=== PATIENT | male | born 1995 | race Caucasian/White ===

== ENCOUNTER 2020-07-21 21:02 | Emergency (ER) | payer OTHER, SELFPAY ==
[2020-07-21 21:52] VITALS: BP 110/70; PULSE 56; RESP 14; TEMP 36.8; O2SAT 96; BMI 20.9
--- NOTE | 2020-07-21 22:09 | W.ED.HEATRA ---
HPI - Head Injury General: Chief complaint: Head Injury Stated complaint: HEAD INJURY Time Seen by Provider: 07/21/20 22:01 History of Present Illness: HPI Narrative: A socket flew off universal socket rinse this evening and in the socket struck him between the eyes. No loss of consciousness. Patient has laceration. Tetanus up-to-date. Complaint: other (Laceration) Onset (ago): minute(s) Mechanism of Injury: other Place: home Loss of Consciousness: no Location of injury: frontal Severity: mild Severity scale (1-10): 1 Associated symptoms: Reports no associated symptoms Review of Systems Const: Denies: fever(s) or chills Skin/Breast: Reports: other (Laceration between the eyes above the bridge of the nose between the eyebro) Psych: Denies: anxiety Physical Exam Const: COMMON NORMALS: no acute distress and patient oriented x3 Neuro: COMMON NORMALS: patient oriented x3, moves all extremities and no focal motor deficits Skin: OTHER: Slightly irregular laceration curved between the eyebrows center no active bleeding Procedures Laceration Laceration 1: Site: face Size (cm): 3 Description: irregular Depth: simple, single layer Skin layer closed with: other (Skin adhesive) Course Vital Signs: Vital signs: Vital Signs Temperature 98.2 F 07/21/20 21:52 Pulse Rate 56 L 07/21/20 21:52 Respiratory Rate 14 07/21/20 21:52 Blood Pressure 110/70 07/21/20 21:52 Pulse Oximetry 96 07/21/20 21:52 Discharge Plan Discharge Patient Disposition: Home Clinical Impression: Laceration Condition: Stable Discharge Orders: Discharge ED (Routine); Ordered 07/21/20 Ordered By: Rodrigo Bautista Referrals: Marina Whaley DO [Primary Care Provider] - Discharge Diet: Usual diet Discharge Activity: Resume usual activity Patient Instructions: Skin Adhesive Care (ED) Activity Restrictions/Additional Instructions: Watch for signs symptoms of infection. Follow-up skin adhesive care instructions. Follow-up your family medical provider if he having difficulties with this laceration. Coding Level of Care Code ED Supervisor Cell Operation for Sharifa Young
== END 2020-07-21 22:22 | disposition home or self-care (01) ==
PROVIDERS: Emergency Provider Nurse Practitioner Family; PCP Family Medicine
DX: S01.81XA Laceration without foreign body of other part of head, initial encounter (principal); W20.8XXA Other cause of strike by thrown, projected or falling object, initial encounter
CPT/HCPCS: 12013; 99281

== ENCOUNTER → 2021-02-22 09:48 | Outpatient (BNVA) | payer OTHER, SELFPAY | PROVIDERS: PCP Family Medicine; Visit Provider Nurse Practitioner Family | DX: Z20.822 Contact with and (suspected) exposure to COVID-19 (principal); J11.1 Influenza due to unidentified influenza virus with other respiratory manifestations | CPT/HCPCS: 87400; 87635 ==

== ENCOUNTER 2022-07-25 18:16 | Emergency (ER) | payer OTHER, SELFPAY ==
[2022-07-25 18:20] VITALS: BP 110/67; PULSE 68; RESP 16; TEMP 36.7; O2SAT 98; BMI 20.9
--- NOTE | 2022-07-25 19:40 | W.ED.EYEPROB ---
HPI - Eye Problem General: Chief complaint: Eye Problems Stated complaint: right eye issue Time Seen by Provider: 07/25/22 19:40 History of Present Illness: Leaves [id number] male patient comes in today for complaints of foreign body in the right eye. 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 Patient appears nontoxic. Patient appears mild pain. Patient denies any chronic medical problems. Associated symptoms: Denies fever(s), nausea or vomiting Review of Systems General: Reports: 10 or more systems reviewed and unremarkable except in HPI and below Const: Denies: fever(s) Eyes: Reports: eye discomfort Card: Denies: chest pain Resp: Denies: dyspnea GI: Denies: nausea or vomiting : Denies: difficulty urinating PFSH ED PFSH: Medical History Seasonal allergic rhinitis due to pollen Tinea corporis Social History Smoking and tobacco status: current every day smoker Physical Exam Const: COMMON NORMALS: alert HENMT: COMMON NORMALS: normocephalic HEAD & SCALP: normocephalic Eye: COMMON NORMALS: Equal, round and reactive pupils present CONJUNCTIVA: Yes conjunctival abnormal positive right conjunctival injection CORNEA: Yes fluorescein used (Small scratch 3:00 outside of iris) PUPIL: Yes Equal, round and reactive pupils present OTHER: Prior to exam foreign body came out of eye and was removed with cloth from the medial lacrimal fold Lymph: LYMPHATIC: no lymphadenopathy noted Resp: COMMON NORMALS: normal respiratory effort Cardio: COMMON NORMALS: regular rate and regular rhythm RATE: regular rate RHYTHM: regular rhythm Neuro: SENSORIUM/ORIENTATION: Yes alert Course Vital Signs: Vital signs: Vital Signs Temperature 98.0 F 07/25/22 18:20 Pulse Rate 68 07/25/22 18:20 Respiratory Rate 16 07/25/22 18:20 Blood Pressure 110/67 07/25/22 18:20 Pulse Oximetry 98 07/25/22 18:20 Oxygen Delivery Me thod Room Air 07/25/22 18:20 MDM - Eye Problem Medical Decision Making 27-year-old male patient comes in today with foreign body to the right eye. On exam there was noted a small grass seed to the right eye lacrimal fold that occurred came out with brushing of it with a cloth. Patient felt relief. I was evaluated for abrasion or scratch and other foreign bodies. No other abnormality was noted except a superficial scratch. Differential diagnoses include retained foreign body, corneal abrasion, conjunctivitis. Noted corneal scratch. Patient will be started on antibiotic eyedrops, Maxitrol, 4 times a day while awake for the next 7 days. Patient was recommended to have eye reevaluated in 3 days for recheck. Patient reported understanding agreed to plan. Discharge Plan Discharge Patient Disposition: Home Clinical Impression: Foreign body, eye Qualifiers: Encounter type: initial encounter Laterality: right Qualified Code(s): T15.91XA - Foreign body on external eye, part unspecified, right eye, initial encounter Condition: Stable Prescriptions: No Action ketoconazole 2 % shampoo 1 applic topical DAILY Qty: 120 6RF Rx Instructions: Lather and apply to chest/back/arms daily. Allowed to sit on skin for 5 minutes before rinsing. ketoconazole 2 % cream 1 applic topical BID Qty: 60 3RF Rx Instructions: Apply Chest/Back/Arms twice daily for 2 weeks. May use as needed for flares. lidocaine-epinephrine (PF) 2 %-1:200,000 solution 1 ml Infiltration ONCE Qty: 1 0RF sulfamethoxazole-trimethoprim [Bactrim DS] 800-160 mg tablet 1 tab PO BID 7 Days Qty: 14 0RF Discharge Orders: Discharge ED (Routine); Ordered 07/25/22 Ordered By: Anderson Gomez Discharge Diet: Usual diet Discharge Activity: Increase activity as tolerated Patient Instructions: Corneal Abrasion (ED) Activity Restrictions/Additional Instructions: Use antibiotic eyedrops 1 drop to the right eye 4 times a day for the next 7 days. Have reevaluated in 3 days for recheck. Return to ED for new concerns. Coding Level of Care Code ED Fashion Supervisor for Sharifa Young
[2022-07-25] MEDS: eye irrigation 30 mL Btl EYE-RIGHT (20:02)
[2022-07-25] MEDS: neomycin-poly-dex Op 5 mL Btl 2 DROP EYE-RIGHT (20:02)
[2022-07-25] MEDS: fluorescein 1 mg Strip EYE-RIGHT (20:03)
[2022-07-25] MEDS: tetracaine 0.5% Op Soln 4 mL Btl 1 DROP EYE-RIGHT (20:03)
--- NOTE | 2022-07-28 12:39 | DCPLANNER ---
TCM called patient due to no primary care physician - patient declines at this time, will call if he wants help in future.
== END 2022-07-25 20:06 | disposition home or self-care (01) ==
PROVIDERS: Emergency Provider Nurse Practitioner Family
DX: T15.91XA Foreign body on external eye, part unspecified, right eye, initial encounter (principal); X58.XXXA Exposure to other specified factors, initial encounter
CPT/HCPCS: 99283

== ENCOUNTER → 2022-10-15 10:10 | Outpatient (BNVA) | payer OTHER, SELFPAY | PROVIDERS: Visit Provider Nurse Practitioner Family | DX: J98.9 Respiratory disorder, unspecified (principal); U07.1 COVID-19; H69.93 Unspecified Eustachian tube disorder, bilateral | CPT/HCPCS: 87400; 87426 ==